=== PATIENT | female | born 1970 | race Caucasian/White ===

== ENCOUNTER 2018-06-07 23:04 | Emergency (ER) | payer MEDICAID ==
[~2018-06-07] VITALS: Ht 160 cm; Wt 75.3 kg
[2018-06-07 23:39] VITALS: Ht 160 cm; Wt 75.3 kg
[2018-06-08 01:00] VITALS: BP 121/71
== END 2018-06-08 01:00 | disposition home or self-care (01) ==
LOC: ED 23:04
DX: H00.015 Hordeolum externum left lower eyelid (principal); Z87.19 Personal history of other diseases of the digestive system; Z98.890 Other specified postprocedural states

== ENCOUNTER 2019-08-04 07:05 | Emergency (ER) | payer SELFPAY ==
[~2019-08-04] VITALS: Ht 160 cm; Wt 72.6 kg
[2019-08-04 07:11] VITALS: Ht 160 cm; Wt 72.6 kg
[2019-08-04 08:10] LABS: BASOPHIL % 0.8 % (0-2); PLATELET COUNT 230 x10^3mcL (130-400); RED CELL DISTRIBUTION WIDTH 12.5 % (11.5-14.5)
[2019-08-04 08:35] LABS: CALCIUM 8.5 mg/dL (8.5-10.1); CARBON DIOXIDE 28.8 mmol/L (21-32); CHLORIDE SERUM 104 mmol/L (98-107); CREATININE SERUM 0.7 mg/dL (0.6-1.0); GFR1 > 60 mL/min; GLUCOSE SERUM 103 mg/dL (74-106); POTASSIUM SERUM 4.1 mmol/L (3.5-5.1); SODIUM SERUM 140 mmol/L (136-145)
[2019-08-04 08:48] LABS: ALBUMIN 3.9 g/dL (3.4-5.0); ALKALINE PHOSPHATASE 58 U/L (46-116); ALT/SGPT 30 U/L (14-59); AST/SGOT 20 U/L (15-37); BILIRUBIN TOTAL 0.3 mg/dL (0.20-1.00); MAGNESIUM 1.9 mg/dL (1.8-2.4); T4(THYROXINE) 9.7 ug/dL (4.7-13.3); TOTAL PROTEIN, SERUM 7.6 g/dL (6.4-8.2)
[2019-08-04 09:53] VITALS: BP 166/78
== END 2019-08-04 09:53 | disposition home or self-care (01) ==
LOC: ED 07:05
PROVIDERS: Emergency Medicine
DX: M79.662 Pain in left lower leg (principal); E78.00 Pure hypercholesterolemia, unspecified; M79.89 Other specified soft tissue disorders; Z90.49 Acquired absence of other specified parts of digestive tract; Z98.890 Other specified postprocedural states
CPT/HCPCS: 36415; 83880; Q0092